=== PATIENT | male | born 1970 | race African-American/Black ===

== ENCOUNTER 2022-02-09 23:42 | Emergency (ER) | payer MEDICAID, OTHER ==
[~2022-02-09] VITALS: Ht 190.5 cm; Wt 111.6 kg
[2022-02-10] MEDS ORDERED: IBUP800T26 PO (01:56)
[2022-02-10 03:18] VITALS: BP 110/58
== END 2022-02-10 03:18 | disposition home or self-care (01) ==
LOC: EDBD 23:42 → ER 23:42
DX: S90.01XA Contusion of right ankle, initial encounter (principal); W22.8XXA Striking against or struck by other objects, initial encounter; Y93.01 Activity, walking, marching and hiking; Y92.89 Other specified places as the place of occurrence of the external cause; Y99.8 Other external cause status
CPT/HCPCS: 73610